=== PATIENT | male | born 2000 | race Caucasian/White ===

== ENCOUNTER 2020-07-04 13:34 | Day surgery (SDC) | payer OTHER ==
[2020-06-27 16:16] LABS: BASOPHILS # (AUTO) 0.1 X10'3 (0-0.2); BASOPHILS % (AUTO) 0.9 % (0-1); EOSINOPHILS # (AUTO) 0.2 X10'3 (0-0.9); EOSINOPHILS % (AUTO) 1.8 % (0-6); LYMPHOCYTES # (AUTO) 3.7 X10'3 (1.1-4.8); MEAN CORPUSCULAR HEMOGLOBIN 31.3 PG (27.0-31.0); MEAN CORPUSCULAR HGB CONC 33.7 g/dL (33.0-36.5); MEAN CORPUSCULAR VOLUME 92.7 FL (78-98); MEAN PLATELET VOLUME 8.1 FL (7.4-10.4); MONOCYTES # (AUTO) 0.9 X10'3 (0-0.9); MONOCYTES % (AUTO) 9.7 % (2-12); NEUTROPHILS # (AUTO) 4.6 X10'3 (1.8-7.7); NEUTROPHILS % (AUTO) 48.6 % (42-75); PRE OP HEMOGLOBIN 15.5 g/dL (14.0-17.9); PRE OP PLATELET COUNT 344 X10'3 (140-440); RED BLOOD COUNT 4.97 X10'6 (4.70-6.10); RED CELL DISTRIBUTION WIDTH 13.5 % (11.5-14.5)
[2020-06-27 16:18] LABS: ALBUMIN 3.9 G/DL (3.4-5.0); ALBUMIN/GLOBULIN RATIO 0.9 (1.1-1.5); ALKALINE PHOSPHATASE 98 IU/L (46-116); BLOOD UREA NITROGEN 12 MG/DL (7-18); BUN/CREATININE RATIO 12.2 (5.4-32.0); CALCIUM 9.3 MG/DL (8.5-10.1); CHLORIDE 105 MMOL/L (99-107); CREATININE 0.98 MG/DL (0.60-1.10); PRE OP ALT 38 U/L (30-65); PRE OP ANION GAP 10 (8-16); PRE OP AST 15 U/L (10-37); PRE OP BILIRUB, TOTAL 0.4 MG/DL (0.0-1.0); PRE OP GLUCOSE 98 MG/DL (70-104); PRE OP POTASSIUM 3.9 MMOL/L (3.4-5.1); PRE OP SODIUM 142 MMOL/L (135-145); TOTAL CARBON DIOXIDE 27.5 MMOL/L (24-32); TOTAL PROTEIN 8.1 G/DL (6.4-8.2); eGFR > 90 ML/MIN
[2020-07-04] VITALS (7 sets, daily range): BP systolic 135–143; BP diastolic 67–87
[~2020-07-04] VITALS: Ht 172.7 cm; Wt 115.7 kg
[~2020-07-04 13:34] MED LIST: ALBU8.5H8 INH; BUPIVAcaine/PF 2.5 mg/ml (0.25%) 30ml vial ONE; LIDOcaine 1% 30ml preserv. free vial ONE; MONT10TA97 PO; PANT40TA54 PO; albuterol 2.5 MG/3 ML nebule NEB ONE; ceFAZolin 2gm in dextrose, iso 50 ML IV ONE; famotidine 20mg tablet PO ONE; ringers solution, lacted 1,000 ML IV SCH
[2020-07-04] MEDS ORDERED: sugammadex 200mg/2ml injection IV ONE ×2 (14:36→16:16)
[2020-07-04] MEDS ORDERED: sevoflurane 250ml liquid IH ONE (14:55)
[2020-07-04] MEDS ORDERED: midazolam 2 mg/2 ml injection ONE (15:00)
[2020-07-04] MEDS ORDERED: fentaNYL /PF 50mcg/ml 5ml ampule ONE (15:01)
[2020-07-04] MEDS ORDERED: LIDOcaine 2% 5ml jelly ONE (15:01)
[2020-07-04] MEDS ORDERED: LIDOcaine 2% (20mg/ml) 5ml vial ONE (15:16)
[2020-07-04] MEDS ORDERED: ondansetron/PF 4mg/2ml inj ONE (15:16)
[2020-07-04] MEDS ORDERED: rocuronium 10mg/ml inj IV ONE ×2 (15:16→16:26)
[2020-07-04] MEDS ORDERED: dexamethasone sod phosphate 4mg/ml inj. ONE (15:16)
[2020-07-04] MEDS ORDERED: propofol inj 20 ML IV ONE ×2 (15:16)
[2020-07-04] MEDS ORDERED: BUPIVACAINE liposomal/PF 13.3 MG/ML vial IM ONE (15:34)
[2020-07-04] MEDS ORDERED: BUPIVAcaine/PF 2.5mg/ml (0.25%) 10ml vial ONE (15:34)
[2020-07-04] MEDS ORDERED: morphine 4 MG/ML inj SYRINge IV PRN (15:40)
[2020-07-04] MEDS ORDERED: labetalol 20mg/4ml (5mg/ml) syringe IV PRN (15:40)
[2020-07-04] MEDS ORDERED: morphine 2 MG/ML inj. syringe IV PRN (15:40)
[2020-07-04] MEDS ORDERED: proCHLORperazine 10 MG/2 ml inj IV PRN (15:40)
[2020-07-04] MEDS ORDERED: acetaminophen 1,000mg/100ml IV 100 ML IV PRN (15:40)
[2020-07-04] MEDS ORDERED: ringers solution, lacted 1,000 ML IV SCH (15:40)
[2020-07-04] MEDS ORDERED: ondansetron/PF 4mg/2ml inj IV PRN (15:40)
[2020-07-04] MEDS ORDERED: meperidine/PF 25mg/ml syringe IV PRN ×3 (15:40)
[2020-07-04] MEDS ORDERED: hydrALAZINE 20mg/ml inj. IV PRN (15:40)
[2020-07-04] MEDS ORDERED: oxyCODONE/APAP 5-325mg tablet PO PRN ×2 (16:30)
--- NOTE | 2020-07-04 16:45 | NUR ---
Received from OR via [facility], accompanied by Anesthesiologist JUDY and report given by Anesthesiolgist. PT SLEEPY, OXYGENATING WELL ON 10 LPM O2 VIA MASK, NO RESP DISTRESS NOTED. PT DENIES NAUSEA, C/O SEVERE INCISIONAL PAIN WHEN AWAKE. MEDICATED PRN, SEE EMAR. ABD LAP SITES COVERED WITH LARGE BANDAIDS, CDI. VSS.
--- NOTE | 2020-07-04 17:55 | NUR ---
Pt discharged to vehicle with all belongings returned, IV dc'd. Pt and mother on phone verbalized understanding of all DC instructions. Pain med script given to patient from MD. Pt alert and oriented, stable for discharge.
== END 2020-07-04 17:55 | disposition home or self-care (01) ==
LOC: PAS 13:34
PROVIDERS: ATTEND Surgery
DX: K42.0 Umbilical hernia with obstruction, without gangrene (principal); Z20.828 Contact with and (suspected) exposure to other viral communicable diseases; J45.909 Unspecified asthma, uncomplicated; K21.9 Gastro-esophageal reflux disease without esophagitis; E66.9 Obesity, unspecified; Z68.38 Body mass index [BMI] 38.0-38.9, adult; Z98.890 Other specified postprocedural states; Z79.899 Other long term (current) drug therapy
CPT/HCPCS: 36415; 49653; 64488; 80053; 82948; 85025; 87635; C1713; C1781; C9290; C9399; J0131; J1100; J2001; J2175; J2250; J2405; J2704; J3010; J3490; S2900; A4215; A4618; J7120